=== PATIENT | male | born 1965 | race Caucasian/White ===

== ENCOUNTER 2021-12-19 10:40 | Emergency (ER) | payer SELFPAY ==
[~2021-12-19] VITALS: Ht 188 cm; Wt 81.6 kg
[2021-12-19 11:43] VITALS: BP 147/95
[2021-12-19] MEDS ORDERED: ACETAMINOPHEN 500 MG TABLET PO ONE (12:00)
== END 2021-12-19 13:17 | disposition home or self-care (01) ==
LOC: EDH 10:40
DX: S46.912A Strain of unspecified muscle, fascia and tendon at shoulder and upper arm level, left arm, initial encounter (principal); X58.XXXA Exposure to other specified factors, initial encounter; Y93.89 Activity, other specified; Y92.89 Other specified places as the place of occurrence of the external cause; Y99.8 Other external cause status
CPT/HCPCS: 73030